=== PATIENT | male | born 2000 | race Caucasian/White ===

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

== ENCOUNTER 2024-01-07 11:50 | Emergency (ER) | payer MEDICAID ==
[~2024-01-07] VITALS: Ht 182.9 cm; Wt 59.9 kg
[2024-01-07] MEDS ORDERED: HYDR-3965 PO (12:49)
[2024-01-07] MEDS ORDERED: AMOX-580 PO (12:49)
[2024-01-07] MEDS: amox tr/potassium clavulanate 875/125mg TAB PO ONE (12:54)
[2024-01-07] MEDS: ketorolac trometh 30MG/ML vial 30 MG/ML VIAL IM ONE (12:56)
[2024-01-07 13:23] VITALS: BP 126/83; PULSE 59; RESP 16; TEMP 98.1; O2SAT 99
== END 2024-01-07 13:25 | disposition home or self-care (01) ==
LOC: ER 11:52
DX: K04.7 Periapical abscess without sinus (principal); F12.90 Cannabis use, unspecified, uncomplicated; Z88.1 Allergy status to other antibiotic agents
CPT/HCPCS: 96372; 99283; J1885